=== PATIENT | female | born 1975 | race Caucasian/White ===

== ENCOUNTER 2017-04-12 12:12 | Emergency (ER) | payer MEDICAID ==
[~2017-04-12] VITALS: Ht 160 cm; Wt 152.5 kg
[2017-04-12 12:18] VITALS: Ht 160 cm; Wt 152.5 kg
[2017-04-12 13:46] LABS: URINE BLOOD (Dip) POC Negative (NEGATIVE)
[2017-04-12] MEDS ORDERED: FLUC150T17 PO (14:14)
--- NOTE | 2017-04-12 16:35 | ERD ---
ER Documentation Chief Complaint Date/Time DATE: 04/12/17 TIME: 16:30 Chief Complaint dysuria x3 days HPI This patient is a 42-year-old female presenting to the emergency department for dysuria for the past 3 days. Additionally she reports vaginal itching. She just finished her prescription for Macrobid for urinary tract infection. Symptoms are worsening. She also has suprapubic pain. She denies fevers, chills, nausea, vomiting, diarrhea or other symptoms at this time she does have a history of UTIs. ROS All systems reviewed and are negative except as per history of present illness. Medications Home Meds Active Scripts Fluconazole* (Diflucan*) 150 Mg Tablet, 150 MG PO ONCE, #2 TAB Prov:TOSIN FARMER PA-C 04/12/17 PMhx/Soc Medical and Surgical Hx: pt denies Medical Hx, pt denies Surgical Hx Hx Alcohol Use: No Hx Substance Use: No Hx Tobacco Use: No Smoking Status: Never smoker Physical Exam Vitals Vital Signs Date Time Temp Pulse Resp B/P Pulse Ox O2 Delivery O2 Flow Rate FiO2 04/12/17 12:18 98.4 81 18 141/68 99 Physical Exam Const: Morbidly obese female in no acute distress. Head: Atraumatic Eyes: Normal Conjunctiva ENT: Normal External Ears, Nose and Mouth. Neck: Full range of motion..~ No meningismus. Resp: Clear to auscultation bilaterally Cardio: Regular rate and rhythm, no murmurs Abd: Soft, non tender, non distended. Normal bowel sounds : Mild suprapubic tenderness to palpation bilaterally. No CVA tenderness. Skin: No petechiae or rashes Back: No midline or flank tenderness Ext: No cyanosis, or edema Neur: Awake and alert Psych: Normal Mood and Affect Results 24 hrs Laboratory Tests Test 04/12/17 13:49 Bedside Urine pH (LAB) 5.5 Bedside Urine Protein (LAB) Negative Bedside Urine Glucose (UA) Negative Bedside Urine Ketones (LAB) Negative Bedside Urine Blood Negative Bedside Urine Nitrite (LAB) Negative Bedside Urine Leukocyte Esterase (L Negative Procedures/MDM 42-year-old female presents to the emergency department with vaginal itching and dysuria for the past 3 days. The patient did just finish a course of Macrobid for urinary tract infection. Urine dip in the department was negative for infection, proteinuria, glucose, or other abnormal findings. I believe the patient's symptoms are secondary to vaginitis which is most likely fungal in origin. The patient will be treated as an outpatient with a prescription for Diflucan. The patient's questions and concerns were addressed. I have low suspicion for acute abdomen, pyelonephritis, septicemia, or other emergent conditions. Close follow-up with the primary care physician advised. Strict ER return precautions were discussed. Departure Diagnosis: Primary Impression: Dysuria Condition: Fair Patient Instructions: Dysuria, Vaginal Infection: Yeast (Candidiasis) Referrals: [facility] Usted se hopkins hecho un examen mdico de control que le indica que no est en krishan condicin que requiera tratamiento urgente en el Departamento de Emergencia. Un estudio ms profundo y el tratamiento de rodriguez condicin pueden esperar sin ningn riesgo hasta que usted sea atendida/o en el consultorio de rodriguez mdico o krishan cl raymond. Es responsabilidad suya arreglar krishan jennifer para el seguimiento del james. MANEJO DE CONDICIONES NO URGENTES EN EL FUTURO 1) Si usted tiene un mdico de atencin primaria: Usted debera llamar a rodriguez mdico de atencin primaria antes de venir al departamento de emergencia. Despus de las horas de consultorio, rodriguez doctor o rodriguez asociado/a est disponible por telfono. El mdico o enfermero de radha en el servicio telefnico puede asesorarle por arjun medio para atender el problema, o james contrario se puede programar krishan jennifer. 2) Si usted no tiene un mdico de atencin primaria: Llame al mdico o clnica de referencia que aparece abajo caroline las horas de consultorio para hacer krishan jennifer para que le vean. CLINICAS: [facility] [phone] [address] [facility] 024 [phone] [address] [facility] [phone] [facility] 264 [phone] [facility] [phone] [address] [facility]. [phone] Additional Instructions: No mas mejor en 2-3 agrawal, regresar. Mas peor en 24 horas, regresear rapidamente. Ir a doctor primario in 5-7 agrawal. Usar instrucciones cuando judy medicamento. TOSIN FARMER PA-C Apr 12, 2017 16:35
== END 2017-04-12 14:26 | disposition home or self-care (01) ==
LOC: FTE 12:12
DX: R30.0 Dysuria (principal)
CPT/HCPCS: 81003; 87086; 99283

== ENCOUNTER 2017-09-27 10:03 | Emergency (ER) | payer MEDICAID ==
[~2017-09-27] VITALS: Ht 157.5 cm; Wt 147.3 kg
[~2017-09-27 10:03] MED LIST: FLUC150T17 PO
[2017-09-27 10:07] VITALS: Ht 157.5 cm; Wt 147.3 kg
[2017-09-27 10:42] LABS: ADD UMIC YES; UR ASCORBIC ACID NEGATIVE (NEGATIVE); UR BILIRUBIN (Dip) NEGATIVE (NEGATIVE); UR BLOOD (Dip) NEGATIVE (NEGATIVE); UR CLARITY SLIGHTLY CLOUDY (CLEAR); UR COLOR YELLOW (YELLOW); UR GLUCOSE (Dip) NEGATIVE (NEGATIVE); UR KETONES (Dip) NEGATIVE (NEGATIVE); UR LEUKOCYTE ESTERASE (Dip) 1+ Leu/ul (NEGATIVE); UR NITRITE (Dip) NEGATIVE (NEGATIVE); UR RBC 1 /HPF (0-5); UR SPECIFIC GRAVITY (Dip) 1.025 (1.003-1.030); UR SQUAMOUS EPITHELIAL CELL FEW /HPF (FEW); UR TOTAL PROTEIN (Dip) NEGATIVE (NEGATIVE); UR UROBILINOGEN (Dip) NEGATIVE (NEGATIVE)
[2017-09-27] MEDS ORDERED: NASO17 NASAL (11:05)
[2017-09-27] MEDS ORDERED: CETI10CA PO (11:05)
[2017-09-27] MEDS ORDERED: FLUO60SO7 TOP (11:05)
[2017-09-27] MEDS ORDERED: CEPH-443 PO (11:05)
--- NOTE | 2017-09-27 11:48 | ERD ---
ER Documentation Chief Complaint Chief Complaint dysuria x 2 days, body itch x 1 week, sore throat x 3 days HPI 42-year-old female history of insulin-dependent diabetes type 2 who comes to emergency department with painful urination for 2 days, body itching for a week and sore throat and cough for a week. Patient describes burning when she pees, as well as urgency and frequency. She has a history of diabetes which she self administers insulin and has a primary care doctor following her for this. She denies fevers chills, nausea, vomiting, diarrhea, abdominal pain, chest pain, shortness of breath. She also describes generalized body itching but no rash. Lastly she comes in with a sore throat, cough for a week. She reports clear rhinorrhea, dry cough with no hemoptysis, no history of recent travel associated with this. ROS All systems reviewed and are negative except as per history of present illness. Medications Home Meds Active Scripts Mometasone Furoate* (Nasonex*) 50 Mcg/Empire - 17 Gm Empire.pump, 1 SPRAY NASAL BID, #1 BOTTLE IN EACH NOSTRIL Prov:SILVANO LOZANO PA-C 09/27/17 Cetirizine Hcl* (Zyrtec*) 10 Mg Capsule, 10 MG PO DAILY, #10 TAB.CHEW Prov:SILVANO LOZANO PA-C 09/27/17 Fluocinonide* (Fluocinonide* Soln) 0.05% - 60 Ml Solution, 1 APPLIC TOP DAILY, # 1 EA Prov:SILVANO LOZANO PA-C 09/27/17 Cephalexin* (Keflex*) 500 Mg Capsule, 500 MG PO TID for 7 Days, CAP Prov:SILVANO LOZANO PA-C 09/27/17 Fluconazole* (Diflucan*) 150 Mg Tablet, 150 MG PO ONCE, #2 TAB Prov:TOSIN FARMER PA-C 04/12/17 Allergies Allergies: Coded Allergies: No Known Allergy (Unverified , 09/27/17) PMhx/Soc History of Surgery: No Anesthesia Reaction: No Hx Neurological Disorder: No Hx Respiratory Disorders: No Hx Cardiac Disorders: No Hx Psychiatric Problems: No Hx Miscellaneous Medical Probl: No Hx Alcohol Use: No Hx Substance Use: No Hx Tobacco Use: No Smoking Status: Never smoker Physical Exam Vitals Vital Signs Date Time Temp Pulse Resp B/P Pulse Ox O2 Delivery O2 Flow Rate FiO2 09/27/17 10:07 98.3 86 18 163/86 97 Physical Exam General: Well-developed, well-nourished. The patient appears in no acute distress. HEENT: Head is normocephalic, atraumatic. No scleral icterus. Pupils are equal , round, and reactive. Oral mucous membranes are moist. No pharyngeal erythema. Neck: Supple. Nontender. Lungs: Clear to auscultation. Normal air movement. Heart: Regular rate and rhythm. S1 and S2 are normal. No murmurs, gallops, or rubs. Abdomen: Soft, nontender, nondistended. Bowel sounds are normoactive. Extremities: No clubbing or cyanosis. Normal pulses. Moving extremities x 4. No weakness. Neurologic: Alert and oriented 3. No focal deficits. Skin: Normal turgor. No rash or lesions. Results 24 hrs Laboratory Tests Test 09/27/17 10:24 Urine Color YELLOW Urine Clarity SLIGHTLY CLOUDY Urine pH 5.0 Urine Specific [place] 1.025 Urine Ketones NEGATIVEmg/dL Urine Nitrite NEGATIVEmg/dL Urine Bilirubin NEGATIVEmg/dL Urine Urobilinogen NEGATIVEmg/dL Urine Leukocyte Esterase 1+Ahmet/ul Urine Microscopic RBC 1/HPF Urine Microscopic WBC 5/HPF Urine Squamous Epithelial Cells FEW/HPF Urine Hemoglobin NEGATIVEmg/dL Urine Glucose NEGATIVEmg/dL Urine Total Protein NEGATIVEmg/dl Urine Test NEGATIVE Procedures/MDM 42-year-old female presents with generalized body rash, patient be given fluocinonide solution, to treat for dermatitis. Zyrtec and Nasonex will be given for cough and URI symptoms that is most likely viral versus allergic rhinitis. Throat as well as pulmonary examination is normal. Urine analysis shows positive leukocyte esterase with white blood cells present, given her symptoms of dysuria the patient will be treated for UTI. No ketonuria, I doubt DKA. Patient stable for discharge and outpatient management. Departure Diagnosis: Primary Impression: Dermatitis Additional Impressions: Cough UTI (urinary tract infection) Condition: Good Patient Instructions: Understanding Urinary Tract Infections (UTIs), Atopic Dermatitis (Eczema), Uri, Viral, No Abx (Adult) SILVANO LOZANO PA-C Sep 27, 2017 11:48
== END 2017-09-27 11:11 | disposition home or self-care (01) ==
LOC: FTE 10:03
DX: L30.9 Dermatitis, unspecified (principal); R05 Cough; N39.0 Urinary tract infection, site not specified; E11.9 Type 2 diabetes mellitus without complications
CPT/HCPCS: 81001; 84703; Z7502; 99284

== ENCOUNTER 2017-10-12 15:46 | Emergency (ER) | payer MEDICAID ==
[~2017-10-12] VITALS: Ht 157.5 cm; Wt 147.5 kg
[~2017-10-12 15:46] MED LIST changes: +CEPH-443 PO; +CETI10CA PO; +FLUO60SO7 TOP; +NASO17 NASAL
[2017-10-12 15:49] VITALS: Ht 157.5 cm; Wt 147.5 kg
[2017-10-12] MEDS ORDERED: ACETAMINOPHEN 325 MG TAB PO ONE (16:30)
[2017-10-12] MEDS ORDERED: AZIT250T94 PO (17:02)
[2017-10-12] MEDS ORDERED: PROM6.25 PO (17:03)
[2017-10-12] MEDS ORDERED: TYL500 PO (17:03)
--- NOTE | 2017-10-12 17:09 | ERD ---
ER Documentation Chief Complaint Chief Complaint cough HPI Is a 42-year-old female presents to the ER with a dry cough for the last 3 days. Last night patient developed high fever with chills. Patient states her appetite has been decreased and she feels very fatigued. She denies any shortness of breath or chest pain. Has a past medical history of diabetes, and is compliant with her medication. There are no sick contacts at home. ROS 12 point review of systems was done, all negative except per HPI. Medications Home Meds Active Scripts Acetaminophen* (Tylenol*) 500 Mg Tab, 500 MG PO Q4H Y for MILD PAIN LEVEL 1-3 for 3 Days, TAB Prov:LISA IBARRA 10/12/17 Promethazine Hcl* (Promethazine Hcl* Syrup) 6.25 Mg/5 Ml Syrup, 12.5 MG PO Q6H Y for COUGH for 3 Days, ML Prov:LISA IBARRA 10/12/17 Azithromycin* (Zithromax*) 250 Mg Tablet, 250 MG PO .ZPACK DIRECTED, #6 TAB TAKE 500 MG (2 TABS) THE FIRST DAY THEN 250 MG (1 TAB) DAYS 2-5 Prov:LISA IBARRA 10/12/17 Mometasone Furoate* (Nasonex*) 50 Mcg/Filley - 17 Gm Filley.pump, 1 SPRAY NASAL BID, #1 BOTTLE IN EACH NOSTRIL Prov:SILVANO LOZANO PA-C 09/27/17 Cetirizine Hcl* (Zyrtec*) 10 Mg Capsule, 10 MG PO DAILY, #10 TAB.CHEW Prov:SILVANO LOZANO PA-C 09/27/17 Fluocinonide* (Fluocinonide* Soln) 0.05% - 60 Ml Solution, 1 APPLIC TOP DAILY, # 1 EA Prov:SILVANO LOZANO PA-C 09/27/17 Cephalexin* (Keflex*) 500 Mg Capsule, 500 MG PO TID for 7 Days, CAP Prov:SILVANO LOZANO PA-C 09/27/17 Fluconazole* (Diflucan*) 150 Mg Tablet, 150 MG PO ONCE, #2 TAB Prov:TOSIN FARMER PA-C 04/12/17 Allergies Allergies: Coded Allergies: No Known Allergy (Unverified , 10/12/17) PMhx/Soc History of Surgery: No Anesthesia Reaction: No Hx Neurological Disorder: No Hx Respiratory Disorders: No Hx Cardiac Disorders: No Hx Psychiatric Problems: No Hx Miscellaneous Medical Probl: No Hx Alcohol Use: No Hx Substance Use: No Hx Tobacco Use: No Smoking Status: Never smoker Physical Exam Vitals Vital Signs Date Time Temp Pulse Resp B/P Pulse Ox O2 Delivery O2 Flow Rate FiO2 10/12/17 15:49 101.3 98 18 146/81 98 Physical Exam GENERAL: The patient is well-developed, well-nourished, in no acute distress. NECK: Cervical spine is non tender with no step off. Supple, no nuchal rigidity HEENT: Atraumatic. Pupils equal, round and reactive to light. Extraocular muscles are grossly intact. Conjunctivae pink, no discharge. Bilateral tympanic membranes are clear with no evidence of erythema, effusion or dulling of the light reflex. Tonsilar erythema with no exudates or uvular deviation. Clear rhinorrhea. RESPIRATORY: Clear to auscultation bilaterally. There are no rales, wheezes or rhonchi. HEART: Regular rate and rhythm. No murmurs, clicks, rubs or gallops. EXTREMITIES: No clubbing or cyanosis. Full range of motion. Grossly neurovascularly intact. NEUROLOGIC: Alert and oriented. Cranial nerves II through XII are intact. SKIN: There is no rash. The skin is warm and dry. Results 24 hrs Current Medications Medications (Trade) Dose Ordered Sig/Emmanuel Route PRN Reason Start Time Stop Time Status Last Admin Dose Admin Acetaminophen (Tylenol Tab) 650 mg ONCE ONCE PO 10/12/17 16:30 10/12/17 16:31 DC 10/12/17 16:34 Procedures/MDM Differential diagnosis includes but is not limited to; Viral URI, allergic rhinitis, bronchitis, pertussis,pneumonia. Patient will be treated for bronchitis, possibly bacterial in etiology as her symptoms are worsening, and her patient does have diabetes, putting her at increased risk for infection. Clinical suspicion for pneumonia is low as patient appears well, is not hypoxic or in any respiratory distress. Additionally, patients physical examination is benign. Plan was discussed with patient they understand and agree. Patient needs to follow up with PCP in 1-2 days or return to ER sooner if symptoms worsen. Departure Diagnosis: Primary Impression: Bronchitis Condition: Stable Patient Instructions: Bronchitis, Antiobiotic Treatment (Adult) Additional Instructions: Zofia landa doctor WHITNEY corona krishan BECK PARA DENTRO DE 1-2 SPENCER.Dgale a la secretaria que nosotros le instruimos hacer esta beck.Avise o llame si rodriguez condicin se empeora antes de la beck. Regresa aqui si peor o no mejor. LISA IBARRA Oct 12, 2017 17:09
== END 2017-10-12 17:09 | disposition home or self-care (01) ==
LOC: FTE 15:46
DX: J20.9 Acute bronchitis, unspecified (principal)
CPT/HCPCS: Z7502; Z7610; 99284

== ENCOUNTER 2019-01-15 18:20 | Emergency (ER) | payer MEDICAID ==
[~2019-01-15] VITALS: Ht 160 cm; Wt 141.0 kg
[~2019-01-15 18:20] MED LIST changes: +AZIT250T PO; +FLUC150T PO; -FLUC150T17 PO; +FLUO60SO12 TOP; -FLUO60SO7 TOP; +PROM6.2515 PO; +TYL500 PO
[2019-01-15 18:38] VITALS: Ht 160 cm; Wt 141.0 kg
[2019-01-15] MEDS ORDERED: D-ME118S24 PO (22:44)
--- NOTE | 2019-01-15 22:47 | ERD ---
ER Documentation Chief Complaint Chief Complaint Fever, cough, SOB X 3 days HPI 43-year-old female presents for cough and shortness of breath times 3 days. She also states that she had subjective fever. She denies chest pain. She denies nausea or vomiting. She is tolerating food and fluids at home. ROS All systems reviewed and are negative except as per history of present illness. Medications Home Meds Active Scripts D-Methorphan Hb/P-Epd HCl/Bpm (Qhukdfjaqu-Ptiuekunrpw-Fv Syr) 118 Ml Syrup, 5 ML PO Q4H PRN for COUGH for 7 Days, #1 BOTTLE Prov:ARYANLEONARDO 01/15/19 Acetaminophen* (Tylenol*) 500 Mg Tab, 500 MG PO Q4H PRN for MILD PAIN LEVEL 1-3 for 3 Days, TAB Prov:LISA IBARRA 10/12/17 Promethazine Hcl* (Promethazine Hcl* Syrup) 6.25 Mg/5 Ml Syrup, 12.5 MG PO Q6H PRN for COUGH for 3 Days, ML Prov:LISA IBARRA 10/12/17 Azithromycin* (Zithromax*) 250 Mg Tablet, 250 MG PO .ZPACK DIRECTED, #6 TAB TAKE 500 MG (2 TABS) THE FIRST DAY THEN 250 MG (1 TAB) DAYS 2-5 Prov:LISA IBARRA 10/12/17 Mometasone Furoate* (Nasonex*) 50 Mcg/Hartley - 17 Gm Hartley.pump, 1 SPRAY NASAL BID, #1 BOTTLE IN EACH NOSTRIL Prov:SILVANO LOZANO PA-C 09/27/17 Cetirizine Hcl* (Zyrtec*) 10 Mg Capsule, 10 MG PO DAILY, #10 TAB.CHEW Prov:SILVANO LOZANO PA-C 09/27/17 Fluocinonide* (Fluocinonide* Soln) 0.05% - 60 Ml Solution, 1 APPLIC TOP DAILY, #1 EA Prov:SILVANO LOZANO PA-C 09/27/17 Cephalexin* (Keflex*) 500 Mg Capsule, 500 MG PO TID for 7 Days, CAP Prov:SILVANO LOZANO PA-C 09/27/17 Fluconazole* (Diflucan*) 150 Mg Tablet, 150 MG PO ONCE, #2 TAB Prov:TOSIN FARMER PA-C 04/12/17 Allergies Allergies: Coded Allergies: No Known Allergy (Unverified , 10/12/17) PMhx/Soc Medical and Surgical Hx: pt denies Medical Hx, pt denies Surgical Hx History of Surgery: No Anesthesia Reaction: No Hx Neurological Disorder: No Hx Respiratory Disorders: No Hx Cardiac Disorders: No Hx Psychiatric Problems: No Hx Miscellaneous Medical Probl: No Hx Alcohol Use: No Hx Substance Use: No Hx Tobacco Use: No Smoking Status: Never smoker Physical Exam Vitals Vital Signs Date Temp Pulse Resp B/P (MAP) Pulse Ox O2 O2 Flow FiO2 Time Delivery Rate 01/15/19 100.2 74 18 143/65 99 18:38 (91) Physical Exam Const: No acute distress Head: Atraumatic Eyes: Normal Conjunctiva ENT: Normal External Ears, bilateral tympanic membrane intact without erythema or bulging noted, nose and Mouth examination normal, no tonsillar swelling or exudate noted Neck: Full range of motion. No meningismus. Resp: Decreased breath sounds diffusely Cardio: Regular rate and rhythm, no murmurs Skin: No petechiae or rashes Ext: No cyanosis, or edema Neur: Awake and alert Psych: Normal Mood and Affect Procedures/MDM Medical Decision Making: Differential diagnosis includes but not limited to upper respiratory infection, pneumonia, sepsis, meningitis. Patient appeared well on physical examination, nontoxic appearing. Lungs were clear to auscultation bilaterally. There is low suspicion for pneumonia, sepsis, meningitis. Chest x-ray is unremarkable Patient likely has an upper respiratory infection, likely viral. Therefore antibiotics not indicated. Discussed symptomatic treatment with patient's parent who agrees with plan. Patient given prescription for supportive medications. Patient advised to follow up with PCP in 1-2 days. Patient advised to return to ED for new or worsening symptoms. Patient stable on discharge from the ED. Disclaimer: Inadvertent spelling and grammatical errors are likely due to EHR/dictation software use and do not reflect on the overall quality of patient care. Also, please note that the electronic time recorded on this note does not necessarily reflect the actual time of the patient encounter. Departure Diagnosis: Primary Impression: URI (upper respiratory infection) URI type: unspecified URI Qualified Codes: J06.9 - Acute upper respiratory infection, unspecified Condition: Fair Patient Instructions: Preventing Common Respiratory Infections Referrals: [facility] YOU HAVE RECEIVED A MEDICAL SCREENING EXAM AND THE RESULTS INDICATE THAT YOU DO NOT HAVE A CONDITION THAT REQUIRES URGENT TREATMENT IN THE EMERGENCY DEPARTMENT. FURTHER EVALUATION AND TREATMENT OF YOUR CONDITION CAN WAIT UNTIL YOU ARE SEEN IN YOUR DOCTORS OFFICE WITHIN THE NEXT 1-2 DAYS. IT IS YOUR RESPONSIBILITY TO MAKE AN APPOINTMENT FOR FOLOW-UP CARE. IF YOU HAVE A PRIMARY DOCTOR --you should call your primary doctor and schedule an appointment IF YOU DO NOT HAVE A PRIMARY DOCTOR YOU CAN CALL OUR PHYSICIAN REFERRAL HOTLINE AT IF YOU CAN NOT AFFORD TO SEE A PHYSICIAN YOU CAN CHOSE FROM THE FOLLOWING [facility] [address] [facility]. [facility] [address] [facility] [facility] [address] [facility] [facility] [address] [facility]. [facility] [address] [facility]. [facility] [address] Additional Instructions: Llame al doctor MAANA y cj krishan BECK PARA DENTRO DE 1-2 SPENCER.Dgale a la secretaria que nosotros le instruimos hacer esta beck.Avise o llame si rodriguez condicin se empeora antes de la beck. Regresa aqui si peor o no mejor. LEONARDO BAEZA DO Jan 15, 2019 22:47
[2019-01-15 22:49] VITALS: BP 139/82; PULSE 64; RESP 16
== END 2019-01-15 22:55 | disposition home or self-care (01) ==
LOC: FTE 18:20
DX: J06.9 Acute upper respiratory infection, unspecified (principal)
CPT/HCPCS: 71046; Z7502